=== PATIENT | female | born 1945 | race Native Hawaiian/Other Pacific Islander ===

== ENCOUNTER 2018-04-26 08:25 | Outpatient (CLI) | payer OTHER, MEDICARE ==
[2018-04-26 08:50] LABS: PLATELET COUNT 299 K/uL (152-353)
[2018-04-26 09:01] LABS: POTASSIUM 4.6 mmol/L (3.6-5.2)
== END 2018-04-26 19:05 | disposition home or self-care (01) ==
LOC: LABW 08:25
PROVIDERS: Nurse Practitioner
DX: I10 Essential (primary) hypertension (principal); E78.00 Pure hypercholesterolemia, unspecified; R53.83 Other fatigue; E55.9 Vitamin D deficiency, unspecified
CPT/HCPCS: 36415; 80053; 80061; 82306; 82607; 84443; 85027

== ENCOUNTER 2018-06-13 14:25 | Outpatient (CLI) | payer OTHER, MEDICARE | END 2018-06-13 19:41 | disposition home or self-care (01) | LOC: MAMMO 14:25 | DX: Z12.31 Encounter for screening mammogram for malignant neoplasm of breast (principal) ==

== ENCOUNTER 2019-04-10 09:20 | Outpatient (CLI) | payer OTHER, MEDICARE ==
[2019-04-10 09:44] LABS: PLATELET COUNT 282 K/uL (152-353)
[2019-04-10 11:05] LABS: POTASSIUM 4.3 mmol/L (3.6-5.2)
== END 2019-04-10 19:12 | disposition home or self-care (01) ==
LOC: LABW 09:20
PROVIDERS: Nurse Practitioner
DX: I10 Essential (primary) hypertension (principal); E78.00 Pure hypercholesterolemia, unspecified; R53.82 Chronic fatigue, unspecified; D51.8 Other vitamin B12 deficiency anemias
CPT/HCPCS: 36415; 80053; 80061; 82607; 83540; 84443; 85027

== ENCOUNTER 2019-06-11 12:21 | Outpatient (CLI) | payer OTHER, MEDICARE ==
[2019-06-11 13:39] LABS: POTASSIUM 3.9 mmol/L (3.6-5.2)
== END 2019-06-11 23:59 | disposition home or self-care (01) ==
LOC: LABW 12:21
PROVIDERS: Nurse Practitioner
DX: E03.8 Other specified hypothyroidism (principal); R53.82 Chronic fatigue, unspecified
CPT/HCPCS: 36415; 80048; 84443; 85014; 85018

== ENCOUNTER 2019-08-25 08:19 | Outpatient (CLI) | payer OTHER, MEDICARE | END 2019-08-25 20:14 | disposition home or self-care (01) | LOC: NM 08:19 | DX: R53.82 Chronic fatigue, unspecified (principal); R06.02 Shortness of breath | CPT/HCPCS: A9500; J2785 ==

== ENCOUNTER 2021-09-17 19:07 | Emergency (ER) | payer OTHER, MEDICARE ==
[~2021-09-17] VITALS: Ht 160 cm; Wt 68.0 kg
[2021-09-17 19:19] VITALS: TEMP 97.8
[2021-09-17 20:34] VITALS: BP 140/50
== END 2021-09-17 20:34 | disposition home or self-care (01) ==
LOC: ED 19:07
DX: M79.671 Pain in right foot (principal); S90.31XA Contusion of right foot, initial encounter; W20.8XXA Other cause of strike by thrown, projected or falling object, initial encounter; Y92.89 Other specified places as the place of occurrence of the external cause
CPT/HCPCS: 96372; 99283; J1885

== ENCOUNTER 2022-01-30 08:26 | Outpatient (CLI) | payer OTHER, MEDICARE | END 2022-01-30 18:57 | disposition home or self-care (01) | LOC: MAMMO 08:26 | PROVIDERS: ATTEND Nurse Practitioner | DX: Z12.31 Encounter for screening mammogram for malignant neoplasm of breast (principal) ==